=== PATIENT | female | born 1955 | race Caucasian/White ===

== ENCOUNTER 2018-12-13 07:39 | Observation (INO) | payer BC ==
[2018-12-13] VITALS (25 sets, daily range): BP systolic 125–166; BP diastolic 68–80; PULSE 50–76; RESP 7–18; Ht 161.3 cm; Wt 95.4 kg
[~2018-12-13] VITALS: Ht 161.3 cm; Wt 95.4 kg
[~2018-12-13 07:39] MED LIST: CEFAZOLIN 2 GM/50 ML (PMX) 50 ML IVPB ONE; DESFLURANE 15 MIN ONE; LIDOCAINE 2% (SDV) 5 ML INJ ONE; PROPOFOL 200 MG INJ ONE; ROCURONIUM 50 MG INJ ONE; SOD CHLORIDE 0.9% 1,000 ML IV SCH
[2018-12-13] MEDS ORDERED: ZIAC5 PO (08:25)
[2018-12-13] MEDS ORDERED: ACETAMINOPHEN 500 MG TAB PO ONE (09:00)
--- NOTE | 2018-12-13 09:39 | PREAC ---
Date/Time of Note Date/Time of Note DATE: 12/13/18 TIME: 09:37 Anesthesia Eval and Record Evaluation Time Pre-Procedure Interview DATE: 12/13/18 TIME: 09:37 Age 63 Sex female NPO: 8 hrs Preoperative diagnosis L breast CA Planned procedure L modified radical mastectomy Past Medical History Past Medical History: Includes Cardio: HTN Endo: Diabetes GI: GERD Surgery & Anesthesia Issues No known issue Meds Anticoagulation: No Beta Isabel within 24 hr: Yes Reported Medications Bisoprolol-Hydrochlorothiazide (Ziac) 5/6.25 Tablet, 1 TAB PO BID, TAB 12/13/18 Current Medications Sodium Chloride 1,000 ml @ 75 mls/hr [id number] IV Last administered on 12/13/18at 09:29; Admin Dose 75 MLS/HR; Start 12/13/18 at 07:00; Stop 12/13/18 at 20:19 Meds reviewed: Yes Allergies Coded Allergies: No Known Drug Allergies (Unverified Allergy, Unknown, 12/13/18) Allergies Reviewed: Yes Labs/Studies Labs Reviewed: Reviewed by anesthesiologist test: N/A Studies: ECG (sb, normal), CXR (No acute cardiopulmonary disease. ) Pre-procedure Exam Last vitals Vital Signs Date Temp Pulse Resp B/P (MAP) Pulse Ox O2 O2 Flow FiO2 Time Delivery Rate 12/13/18 98.1 58 16 157/75 96 Room Air 09:12 (102) Airway: Adequate mouth opening, Adequate thyromental dist Mallampati: Mallampati II Teeth: Abnormal (partial lower dentures, full upper dentures, will be removed in preop) Lung: Normal Heart: Normal ASA Physical Status ASA physical status: 2 Emergency: None Planned Anesthetic General/MAC: ETT Pre-operative Attestations Prior to commencing anesthesia and surgery, the patient was re-evaluated, there was verification of: *The patient's identity *The results of appropriate recent lab work and preoperative vital signs *The above evaluation not changing prior to induction *Anesthetic plan, risk benefits, alternative and complications discussed with damari oh/family; questions answered; patient/family understands, accepts and wishes to proceed. AIDEN LEWIS Dec 13, 2018 09:39
[2018-12-13] MEDS ORDERED: HYDROmorphONE 1 MG/5 ML IV SYRINGE IV PRN (10:00)
[2018-12-13] MEDS ORDERED: ONDANSETRON 4 MG INJ IV PRN ×2 (10:00→13:00)
[2018-12-13] MEDS ORDERED: MEPERIDINE 25 MG INJ IV PRN (10:00)
[2018-12-13] MEDS ORDERED: LABETALOL HCL 20MG INJ IV PRN (10:00)
[2018-12-13] MEDS ORDERED: morphine (1 MG/ML) 10ML SYRINGE IV PRN ×2 (10:00)
[2018-12-13] MEDS ORDERED: DIPHENHYDRAMINE 50 MG INJ IV PRN (10:00)
[2018-12-13] MEDS ORDERED: OXYCODONE/ACETAMINOPHEN (5/325) TAB PO PRN ×2 (10:00)
[2018-12-13] MEDS ORDERED: FENTAnyl 50 MCG/ML VIAL IV PRN ×2 (10:00)
[2018-12-13] MEDS ORDERED: ALBUTEROL 0.083% (NEB) 2.5 MG/3 ML AMP HHN PRN (10:00)
[2018-12-13] MEDS ORDERED: FENTAnyl 50 MCG/ML VIAL ONE ×2 (11:06→12:05)
[2018-12-13] MEDS ORDERED: MIDAZOLAM 1 MG/ML 2 ML INJ ONE (11:06)
[2018-12-13] MEDS ORDERED: CEFAZOLIN 1 GM INJ ONE (11:06)
[2018-12-13] MEDS ORDERED: FAMOTIDINE 20 MG INJ ONE (11:24)
[2018-12-13] MEDS ORDERED: ONDANSETRON 4 MG INJ ONE (11:24)
[2018-12-13] MEDS ORDERED: NEOSTIGMINE 3 MG/3 ML SYRINGE ONE (12:27)
[2018-12-13] MEDS ORDERED: GLYCOPYRROLATE 0.4 MG INJ ONE (12:27)
--- NOTE | 2018-12-13 12:38 | SIPON ---
Date/Time of Note Date/Time of Note DATE: 12/13/18 TIME: 12:36 Operative Report Preoperative Diagnosis Invasive cancer left breast Postoperative Diagnosis Same Operation/Procedure Performed Left modified radical mastectomy Surgeon see signature line [employer] Dr Rojo Anesthesia: general Estimated blood loss: 10 - 50 ml's Transfusion Required none Specimen Left breast and axillary contents and additional inferior margin Grafts/Implants none Complications none ANJEL ESTRADA MD Dec 13, 2018 12:38
--- NOTE | 2018-12-13 12:54 | PAC ---
Date/Time of Note Date/Time of Note DATE: 12/13/18 TIME: 12:53 Post-Anesthesia Notes Post-Anesthesia Note Last documented vital signs Vital Signs Date Temp Pulse Resp B/P (MAP) Pulse Ox O2 O2 Flow FiO2 Time Delivery Rate 12/13/18 98.1 98 58 59 16 18 157/75 96 100 Room 09:12 124 (102) 178 Air face mask 6L Activity: WNL Respiratory function: WNL Cardiovascular function: WNL Mental status: Baseline Pain reasonably controlled: Yes Hydration appropriate: Yes Nausea/Vomiting absent: Yes AIDEN LEWIS Dec 13, 2018 12:54
[2018-12-13] MEDS: HYDROmorphONE 1 MG/5 ML IV SYRINGE IV PRN ×2 (13:00→13:08)
--- NOTE | 2018-12-13 14:16 | QN ---
Documentation Comment seen and examined ALIYAH MUÑOZ MD Dec 13, 2018 14:16
--- NOTE | 2018-12-13 14:27 | OPR ---
DATE OF OPERATION: 12/13/2018 PREOPERATIVE DIAGNOSES: 1. Invasive cancer, left breast. 2. Extensive ductal carcinoma in situ. POSTOPERATIVE DIAGNOSES: 1. Invasive cancer, left breast. 2. Extensive ductal carcinoma in situ. OPERATION PERFORMED: Left modified radical mastectomy. ANESTHESIA: General. ANESTHESIOLOGIST: Cristina Gomez NP SURGEON: Elvin Kelley MD ENERGY EFFICIENCY ENGINEER: Jeancarlos Sullivan MD INDICATIONS FOR PROCEDURE: The patient is a 63-year-old female who underwent surveillance mammograph y when she was also found to have a palpable mass. Mammography revealed extensive suspicious microca lcifications. 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 The patient underwent an MRI w hich showed disease throughout the breast. Based on this, the recommendation was made by attending [facility] pathologist, Dr. Larry Flowers for modified radical mastectomy. The patient cons ented and was scheduled for surgery. DESCRIPTION OF PROCEDURE: The patient was brought to the operating theater, placed under general end otracheal tube anesthesia. The left breast and axillary region was prepped and draped in usual steri le fashion. Planned elliptical incision was made widely around the nipple areolar complex including significant portion of the overlying breast skin with marking pen. An incision was then carried out with 15 blade scalpel and subcutaneous tissue was dissected with cautery. Skin edges were then eleva walter with Allis [place] clamps and skin flaps were created using cautery in a sequential fashion, first superiorly to the clavicle, then medially to the sternal border, inferiorly to the inframammary fold and then laterally until the latissimus dorsi muscle was identified throughout its course. Mastectom y was then performed from medial to lateral using cautery at the border of the pectoralis major muscl e, the pectoralis minor muscle was identified. Clavipectoral fascia was incised with blunt dissectio n along the chest wall. The long thoracic nerve was identified and kept out of harm's way. More sup eriorly, the axillary vein was identified and kept out of harm's way. Thoracodorsal neurovascular bu ndle was identified and kept out of harm's way. Node bearing tissue between the 2 nodes was then res ected using LigaSure device. Final connective tissue attachments to latissimus dorsi muscle were the n transected with cautery. The specimen was sent for intraoperative analysis of the large palpable l ymph node; however, this was performed by Dr. Juno Ambrosio and it was negative for evidence of metast atic disease. Therefore, the specimen was sent for permanent pathology and no further lymph nodes we re taken. The wound was then irrigated. Minimal bleeding was controlled with cautery. Two #10 flat Ryley-Joiner drains were then brought through the left mid axillary line, one was cut to size and l aid within the axilla, the other was laid over the pectoralis major muscle. Both drains were secured in place with 2-0 nylon sutures in the standard fashion. The skin was then reapproximated with deep dermal layer of 4-0 Vicryl sutures in interrupted fashion, followed by final skin approximation with skin ismael. The patient tolerated procedure well. The estimated blood loss was approximately 40 mL. There were no complications and the patient was transported in stable condition to the recovery room. Dictated By: ELVIN KELLEY MD TL/KENY Conf#: [id number] DID#: [id number] CC: ELVIN KELLEY MD; JEANCARLOS SULLIVAN MD;*EndCC*
[2018-12-13] MEDS ORDERED: GLUCOSE GEL 15 GRAM TUBE PO PRN ×2 (14:30)
[2018-12-13] MEDS ORDERED: DEXTROSE 50% 50 ML SYRINGE IV PRN ×2 (14:30)
[2018-12-13] MEDS: AMLODIPINE 5 MG TAB PO SCH ×2 (14:30→15:33)
[2018-12-13] MEDS ORDERED: GLUCAGON 1 MG INJ IM PRN (14:30)
[2018-12-13] MEDS ORDERED: GLUCOSE GEL 15 GRAM TUBE BUCCAL PRN (14:30)
[2018-12-13] MEDS: D5W-0.45 NACL + KCL 20 MEQ 1,000 ML IV SCH ×3 (14:50→22:51)
--- NOTE | 2018-12-13 15:36 | HP ---
DATE OF ADMISSION: 12/13/2018 REASON FOR ADMISSION: Status post left modified radical mastectomy by Dr. Short. HISTORY OF PRESENT ILLNESS: Carrie is a 62-year-old female with a past medical history of hypertensi on who went in surveillance mammogram. She was found to have a suspicious mass in her left breast. Core biopsy revealed DCIS. Patient was seen by Dr. Short and had a left modified radical mastectomy pe rformed today. Postop blood loss 50 mL. The pain is control and was admitted for further management . PAST MEDICAL HISTORY: Hypertension, noninsulin-dependent diabetes mellitus. PAST SURGICAL HISTORY: Previous cholecystectomy. ALLERGIES: None. MEDICATIONS: Taking at home are a combination of bisoprolol/hydrochlorothiazide. SOCIAL HISTORY: Denies any history of any smoking, alcohol or any drug use. Currently lives at home with and daughter. FAMILY HISTORY: Significant for breast cancer in aunt and negative for history of ovarian cancer. REVIEW OF SYSTEMS: The patient denies any chest pain, any shortness of breath, any abdominal pain, n ausea, vomiting, or diarrhea. Had some minimal pain in the left breast site, has [address] PHYSICAL EXAMINATION: VITAL SIGNS: Afebrile, heart rate 76, respirations 14, blood pressure 125/73, saturating 96% on 2 li ters. GENERAL: The patient is awake, alert, oriented, does not appear in acute distress. HEENT: Pupils equal, round, react to light. NECK: Supple. No JVD. HEART: Regular rate and rhythm. LUNGS: Clear to auscultate bilaterally. The patient has left breast modified mastectomy and has [address] EXTREMITIES: No clubbing, cyanosis, or edema. ASSESSMENT AND PLAN: This is a 63-year-old female who presented with: 1. Left modified radical mastectomy with invasive left breast mass and extensive ductal carcinoma in situ. 2. Hypertension. 3. Noninsulin dependent diabetes mellitus. PLAN: At this period of time, the patient is admitted to med/surg. The patient is on pain control. The patient will also be started on the blood pressure medicine. Management is per surgery. Rest o f the treatment will depend on the patient's hospitalization course. Dictated By: ALIYAH MERCER/KENY Conf#: [id number] [facility]#: [id number]
[2018-12-13] MEDS ORDERED: morphine 2 MG INJ IV PRN (17:01)
[2018-12-13] MEDS: INSULIN ASPART [NOVOLOG] 3 ML PEN SC SCH ×2 (18:15→20:48)
[2018-12-13] MEDS: ACETAMINOPHEN 1000MG/100ML IV 100 ML IVPB PRN (20:37)
[2018-12-14 00:17] VITALS: BP 135/73; PULSE 66; RESP 18
[2018-12-14] MEDS ORDERED: ACCU-CHEK XX SCH (02:00)
[2018-12-14] MEDS: ACETAMINOPHEN 1000MG/100ML IV 100 ML IVPB PRN (07:16)
[2018-12-14 07:26] VITALS: BP 137/81; PULSE 67; RESP 16
[2018-12-14] MEDS: INSULIN ASPART [NOVOLOG] 3 ML PEN SC SCH ×2 (07:50→12:42)
[2018-12-14] MEDS: AMLODIPINE 5 MG TAB PO SCH (08:45)
[2018-12-14] MEDS ORDERED: HYDROCODONE/APAP (5/325) TAB PO PRN (10:30)
--- NOTE | 2018-12-14 10:34 | PN ---
Date/Time of Note Date/Time of Note DATE: 12/14/18 TIME: 10:32 Assessment/Plan [place] [facility] [place]: 4 [place] [facility] [place] Yes Pharmacological prophylaxis: NA/contraindicated Pharm contraindication: low risk/ambulating Lines/Catheters IV [facility] (from [facility] Peripheral IV Assessment/Plan Hospital Course is is a 63-year-old female who presented with: 1. Left modified radical mastectomy with invasive left breast mass and extensive ductal carcinoma in situ. 2. Hypertension. 3. Noninsulin dependent diabetes mellitus. Plan - Monitor JARVIS drains one drain 40 ml>other 116 ml - pain control> norco dc home if cleared by surgery Result Diagram: 12/14/18 0439 12/14/18 0439 Results 24hrs Laboratory Tests Test 12/13/18 13:15 12/13/18 15:03 12/13/18 18:01 12/13/18 20:31 Bedside Glucose 148 164 143 White Blood Count 8.5 Red Blood Count 4.42 Hemoglobin 12.7 Hematocrit 37.2 Mean Corpuscular 84.2 Volume Mean Corpuscular 28.7 L Hemoglobin Mean Corpuscular 34.1 Hemoglobin Concent Red Cell Distribution 13.1 Width Platelet Count 192 Mean Platelet Volume 8.8 Immature Granulocytes 0.100 % Neutrophils % 81.3 H Lymphocytes % 12.4 L Monocytes % 4.8 Eosinophils % 1.2 Basophils % 0.2 Nucleated Red Blood 0.0 Cells % Immature Granulocytes 0.010 # Neutrophils # 6.9 Lymphocytes # 1.1 Monocytes # 0.4 Eosinophils # 0.1 Basophils # 0.0 Nucleated Red Blood 0.0 Cells # Test 12/14/18 04:39 12/14/18 07:30 12/14/18 08:48 White Blood Count 6.7 # Red Blood Count 4.24 Hemoglobin 12.2 Hematocrit 36.5 L Mean Corpuscular 86.1 Volume Mean Corpuscular 28.8 L Hemoglobin Mean Corpuscular 33.4 Hemoglobin Concent Red Cell Distribution 13.0 Width Platelet Count 180 Mean Platelet Volume 8.7 Immature Granulocytes 0.300 % Neutrophils % 71.0 Lymphocytes % 18.8 Monocytes % 6.6 Eosinophils % 3.0 Basophils % 0.3 Nucleated Red Blood 0.0 Cells % Immature Granulocytes 0.020 # Neutrophils # 4.8 Lymphocytes # 1.3 Monocytes # 0.4 Eosinophils # 0.2 Basophils # 0.0 Nucleated Red Blood 0.0 Cells # Sodium Level 141 Potassium Level 3.9 Chloride Level 106 Carbon Dioxide Level 27 Anion Gap 8 Blood Urea Nitrogen 12 Creatinine 0.59 Est Glomerular > 60 Filtrat Rate mL/min Glucose Level 106 Calcium Level 9.2 Phosphorus Level 3.3 Magnesium Level 1.8 Lab Scanned Report REFERENCE LAB Bedside Glucose 114 Subjective 24 Hr Interval Summary Free Text/Dictation pain in left chest Exam/Review of Systems Exam Vitals Vital Signs Date Temp Pulse Resp B/P (MAP) Pulse Ox O2 O2 Flow FiO2 Time Delivery Rate 12/14/18 98.0 67 16 137/81 98 Room Air 07:26 (99) 12/13/18 8.0 13:15 Intake and Output 12/13/18 12/13/18 12/14/18 1414:59 22:59 06:59 IntakeIntake Total 900 ml 1575 ml 1050 ml OutputOutput Total 81 ml 45 ml 80 ml BalanceBalance 819 ml 1530 ml 970 ml Exam GENERAL: The patient is awake, alert, oriented, does not appear in acute distre ss. HEENT: Pupils equal, round, react to light. NECK: Supple. No JVD. HEART: Regular rate and rhythm. LUNGS: Clear to auscultate bilaterally. The patient has left breast modified mastectomy and has [address] EXTREMITIES: No clubbing, cyanosis, or mindy Results Results 24hrs Laboratory Tests Test 12/13/18 13:15 12/13/18 15:03 12/13/18 18:01 12/13/18 20:31 Bedside Glucose 148 164 143 White Blood Count 8.5 Red Blood Count 4.42 Hemoglobin 12.7 Hematocrit 37.2 Mean Corpuscular 84.2 Volume Mean Corpuscular 28.7 L Hemoglobin Mean Corpuscular 34.1 Hemoglobin Concent Red Cell Distribution 13.1 Width Platelet Count 192 Mean Platelet Volume 8.8 Immature Granulocytes 0.100 % Neutrophils % 81.3 H Lymphocytes % 12.4 L Monocytes % 4.8 Eosinophils % 1.2 Basophils % 0.2 Nucleated Red Blood 0.0 Cells % Immature Granulocytes 0.010 # Neutrophils # 6.9 Lymphocytes # 1.1 Monocytes # 0.4 Eosinophils # 0.1 Basophils # 0.0 Nucleated Red Blood 0.0 Cells # Test 12/14/18 04:39 12/14/18 07:30 12/14/18 08:48 White Blood Count 6.7 # Red Blood Count 4.24 Hemoglobin 12.2 Hematocrit 36.5 L Mean Corpuscular 86.1 Volume Mean Corpuscular 28.8 L Hemoglobin Mean Corpuscular 33.4 Hemoglobin Concent Red Cell Distribution 13.0 Width Platelet Count 180 Mean Platelet Volume 8.7 Immature Granulocytes 0.300 % Neutrophils % 71.0 Lymphocytes % 18.8 Monocytes % 6.6 Eosinophils % 3.0 Basophils % 0.3 Nucleated Red Blood 0.0 Cells % Immature Granulocytes 0.020 # Neutrophils # 4.8 Lymphocytes # 1.3 Monocytes # 0.4 Eosinophils # 0.2 Basophils # 0.0 Nucleated Red Blood 0.0 Cells # Sodium Level 141 Potassium Level 3.9 Chloride Level 106 Carbon Dioxide Level 27 Anion Gap 8 Blood Urea Nitrogen 12 Creatinine 0.59 Est Glomerular > 60 Filtrat Rate mL/min Glucose Level 106 Calcium Level 9.2 Phosphorus Level 3.3 Magnesium Level 1.8 Lab Scanned Report REFERENCE LAB Bedside Glucose 114 Medications Medication Current Medications Albuterol (Proventil 0.083% (Neb)) 2.5 mg PACU ORDER PRN HHN .WHEEZING; Start 12/13/18 at 10:00 Ondansetron HCl (Zofran Inj) 4 mg Q6H PRN IV NAUSEA AND/OR VOMITING; Start 12/13/18 at 13:00 Potassium Chloride/Dextrose/ Sod Cl 1,000 ml @ 125 mls/hr Q8H IV Last administered on 12/13/18at 22:51; Admin Dose 125 MLS/HR; Start 12/13/18 at 12:38 Acetaminophen 100 ml @ 400 mls/hr Q6H PRN IVPB PAIN Last administered on 12/14/18at 07:16; Admin Dose 400 MLS/HR; Start 12/13/18 at 13:00; Stop 12/14/18 at 12:59 Amlodipine Besylate (Norvasc) 5 mg DAILY PO Last administered on 12/14/18at 08:45; Admin Dose 5 MG; Start 12/13/18 at 14:30 Diagnostic Test (Pha) (Accu-Chek) 1 ea 02 XX ; Start 12/14/18 at 02:00 Insulin Aspart (Novolog Insulin Pen) NOVOLOG *MILD* ALGORITHM WITH MEALS BEDTIME SC Last administered on 12/13/18at 18:15; Admin Dose 1 UNIT; Start 12/13/18 at 17:55 Miscellaneous Information 1 ea NOTE XX ; Start 12/13/18 at 14:30 Glucose (Glutose) 15 gm Q15M PRN PO DECREASED GLUCOSE; Start 12/13/18 at 14:30 Glucose (Glutose) 22.5 gm Q15M PRN PO DECREASED GLUCOSE; Start 12/13/18 at 14:30 Dextrose (D50w Syringe) 25 ml Q15M PRN IV DECREASED GLUCOSE; Start 12/13/18 at 14:30 Dextrose (D50w Syringe) 50 ml Q15M PRN IV DECREASED GLUCOSE; Start 12/13/18 at 14:30 Glucagon (Glucagen) 1 mg Q15M PRN IM DECREASED GLUCOSE; Start 12/13/18 at 14:30 Glucose (Glutose) 15 gm Q15M PRN BUCCAL DECREASED GLUCOSE; Start 12/13/18 at 14:30 Acetaminophen/ Hydrocodone Bitart ([place] (5/325)) 1 tab Q4H PRN PO MODERATE PAIN LEVEL 4-6; Start 12/14/18 at 10:30 ALIYAH MUÑOZ MD Dec 14, 2018 10:34
--- NOTE | 2018-12-14 10:36 | PDOCDIS ---
Discharge Instructions DIAGNOSIS Discharge Diagnosis left mastectomy CONDITION [id number] Patient Condition: Etroh5s Fair HOME CARE INSTRUCTIONS: [id number] Diet Instructions: [id number] Low Fat /Cholesterol ACTIVITY: [id number] Activity Restrictions: [id number] Slowly Increase Activity Rest between Activity Avoid heavy lifting FOLLOW UP/APPOINTMENTS Follow-up Plan f/u Dr Kelley in 1 week ALIYAH MUÑOZ MD Dec 14, 2018 10:36
[2018-12-14] MEDS ORDERED: DOCU-144 PO (10:37)
[2018-12-14] MEDS ORDERED: HYDR-4011 PO (10:37)
[2018-12-14] MEDS ORDERED: DOCUSATE SODIUM 100 MG CAP PO SCH (13:00)
--- NOTE | 2018-12-14 17:01 | PN ---
DATE: 12/14/2018 Postop day #1, status post left breast modified radical mastectomy with axillary dissection. SUBJECTIVE: No complaint. Has tolerated diet, has been out of bed, walking around. OBJECTIVE: GENERAL: Awake, alert, oriented x3. VITAL SIGNS: Temperature maximum 98.7, heart rate 66, respiratory rate 18, blood pressure 135/73, pu lse oximetry 95% on room air. HEART: Regular. LUNGS: Clear. SKIN: Dressing is intact. Ryley-Joiner has serosanguineous drainage. EXTREMITIES: He can move the left upper extremity, full range. LABORATORY DATA: No lab was done today. INPUT AND OUTPUT: Two Ryley-Joiner drains were in place. One of them has drained 40 mL. The other one has drained 116 mL from the time of operation yesterday until 7:00 today morning. PLAN: Instruction was given to the patient's 2 daughters in regard to the care of the Ryley-Joiner. The patient can be discharged home today with pain medication, to call Dr. Kelley' office and make a n appointment for next Thursday or Thursday. Dictated By: ZIYAD SULLIVAN MD PS/NTS Conf#: [id number] DID#: [id number] CC: DEBBIE SHARP MD; ANJEL KELLEY MD;*EndCC*
--- NOTE | 2018-12-14 20:21 | DS ---
DATE OF ADMISSION: 12/13/2018 DATE OF DISCHARGE: 12/14/2018 HISTORY OF PRESENTING ILLNESS AND HOSPITAL COURSE: This is a 63-year-old female with past medical hi story of hypertension who went for surveillance mammogram and was found to have suspicious mass in he r left breast. Core biopsy revealed DCIS. The patient was seen by Dr. Short and had a left modified r adical mastectomy. Postop blood loss was 50 mL. The pain was transferred to med/surg unit. The pat ient's vital signs were stable. The patient was requiring IV pain medicines for pain. Hemoglobin is stable at 12.7 to 12.2. Chest x-ray was also done and within normal limit. The patient's pain was controlled with [place] and after being seen by the surgeon, the patient will be discharged today. The patient had [address] and had drained of about 40 mL through 116. Nurse educated the denice mena about draining the JARVIS drains. FINAL DISCHARGE DIAGNOSES: 1. Left modified radical mastectomy with invasive left breast mass and extensive ductal carcinoma in situ. The patient will be followed up with Dr. Kelley and oncology as an outpatient. 2. Hypertension. 3. Non-insulin dependent diabetes mellitus. 4. Pain control. DISCHARGE CONDITION: Stable. DISCHARGE DIET: A 2-gram sodium, carb controlled diet. DISCHARGE MEDICATIONS: 1. Haslett 1 tab p.o. q.6 p.r.n. pain. 2. Colace 100 mg p.o. b.i.d. p.r.n. constipation. Continue with home medication which is bisoprolol and hydrochlorothiazide 5/6.25 tab p.o. b.i.d. FOLLOWUP: The patient was instructed to follow up with Dr. Kelley in 1 week. Dictated By: ALIYAH MERCER/KENY Conf#: [id number] DID#: [id number] CC: ANJEL KELLEY MD; DEBBIE SHARP MD;*EndCC*
--- NOTE | 2018-12-15 15:23 | RADRPT ---
Vent Rate: 54 bpm RR Interval: 0 msec AR Interval: 210 msec QRS Duration: 80 msec QT Interval: 434 msec QTC Interval: 411 msec P-R-T [place]: 46 - 18 - 40 degrees Sinus bradycardia with 1st degree AV block Otherwise normal ECG Electronically Signed By: Vasyl Trotter
== END 2018-12-14 16:30 | disposition home or self-care (01) ==
LOC: SDS 07:39 → INTOOBSV 12:38 → REC 12:38 → MS1 14:27
PROVIDERS: ADMIT Surgery Surgical Oncology; ATTEND Surgery Surgical Oncology
DX: C50.412 Malignant neoplasm of upper-outer quadrant of left female breast (principal); Z17.0 Estrogen receptor positive status [ER+]; I10 Essential (primary) hypertension; E11.9 Type 2 diabetes mellitus without complications
CPT/HCPCS: 19307; 71045; 80048; 82962; 83735; 84100; 85025; 88307; 88331; 88341; 88342; 93005; J0131; J0690; J1170; J1815; J2250; J2270; J2405; J2710; J3010; J3480; Z7500; Z7512; Z7610; 99217; G0378